=== PATIENT | male | born 1985 | race African-American/Black ===

== ENCOUNTER 2017-08-13 19:22 | Emergency (ER) | payer MEDICAID ==
[~2017-08-13] VITALS: Ht 194.3 cm; Wt 100.0 kg
[~2017-08-13 19:22] MED LIST: DOXY100T PO; Z.0.NO CURRENT MEDS
[2017-08-13 19:46] VITALS: PULSE 57; RESP 16; TEMP 99.3; O2SAT 98
--- NOTE | 2017-08-13 20:15 | PD ---
HPI Chief Complaint: Complaint Time Seen by Provider: 20:15 Travel History International Travel<30 days: No Contact w/Intl Traveler<30days: No Traveled to known affect area: No History of Present Illness HPI 31-year-old male presents to the emergency department accompanied by his girlfriend with complaint of exposure to chlamydia. His girlfriend and was just seen here at [place] in the ER and diagnosed with chlamydia and he was told that he needed to check in and be treated. He denies penile discharge, drainage, dysuria. Denies testicular pain or swelling. Denies fever, vomiting , abdominal pain. Symptoms are mild in severity. No known aggravating or relieving factors. Onset unknown. Duration unknown. Has not taken any medications or try any treatments to alleviate his symptoms. No known allergies. Denies significant past medical history. Has a primary care provider and cannot remember the name. Has no other medical complaints. No other modifying factors or associated signs and symptoms. PFSH Past Medical History Medical History: Denies Significant Hx Diminished Hearing: No Tetanus Vaccination: Unknown Influenza Vaccination: No Past Surgical History Surgical History: No Previous Surgery Social History Alcohol Use: No Tobacco Use: Yes (< 1PPD) Substance Use: No Allergies-Medications (Allergen,Severity, Reaction): Coded Allergies: No Known Allergies (Verified , 06/28/14) Reported Meds & Prescriptions Reported Meds & Active Scripts Active No Active Prescriptions or Reported Medications Review of Systems Except as stated in HPI: all other systems reviewed are Neg Physical Exam Narrative GENERAL: Well-nourished, well-developed black male patient, in no acute distress SKIN: Warm and dry. HEAD: Atraumatic. Normocephalic. EYES: Pupils equal and round. No scleral icterus. No injection or drainage. ENT: Mucosa pink and moist. Airway patent. NECK: Trachea midline. CARDIOVASCULAR: Regular rate. RESPIRATORY: No accessory muscle use. GASTROINTESTINAL: Flat. MUSCULOSKELETAL: No obvious deformities. No clubbing. No cyanosis. No edema. NEUROLOGICAL: Awake and alert. Oriented 3. No obvious cranial nerve deficits. Motor grossly within normal limits. Normal speech. PSYCHIATRIC: Appropriate mood and affect; insight and judgment normal. Data Data Last Documented VS Vital Signs Date Time Temp Pulse Resp B/P (MAP) Pulse Ox O2 Delivery O2 Flow Rate FiO2 08/13/17 19:46 99.3 57 16 98 Orders Orders Azithromycin Powd Pack (Zithromax Powd P (08/13/17 20:30) Ceftriaxone Inj (Rocephin Inj) (08/13/17 20:30) Lidocaine 1% Inj (50 Ml) (Xylocaine 1% I (08/13/17 20:30) Gc And Chlamydia Pcr (08/13/17 20:17) Ed Discharge Order (08/13/17 20:21) MDM Medical Decision Making Medical Screen Exam Complete: Yes Emergency Medical Condition: Yes Medical Record Reviewed: Yes Differential Diagnosis Chlamydia, gonorrhea, asymptomatic urethritis Narrative Course 31-year-old male with exposure to chlamydia. His girlfriend was just seen in the ER and diagnosed with chlamydia. He was told to check in and get treated. He is asymptomatic. I Reviewed the girlfriend's medical record and she was positive for bacterial vaginosis and chlamydia. Patient will be empirically treated with azithromycin and Rocephin in the ER. Instructed patient to follow- up with primary care provider or [facility] department for complete STD/STI screening. Instructed patient to follow up with primary care provider. Patient verbalizes understanding and agreement with treatment plan. Patient is medically cleared and stable for discharge. Discussed reasons to return to the emergency department. Patient agrees with treatment plan. The patients vital signs are stable and the patient is stable for outpatient follow-up and treatment. Patient discharged home, stable and in no acute distress. Diagnosis Primary Impression: Exposure to chlamydia Referrals: [facility] Primary Care Physician [facility] Dept. Patient Instructions: Chlamydia (ED), General Instructions, Sexually Transmitted Diseases (ED) Additional Instructions: Avoid sexual activity for 14 days No sexual activity with your partner/s until they have been treated and waited 14 days Inform all sexual partners within the past 3-6 months that they need to be evaluated and treated Use condoms every time you have sex Follow-up with primary care provider Return to the emergency department immediately with worsening of symptoms Med/Other Pt SpecificInfo: No Change to Meds, No Meds Exist/No RX given Scripts No Active Prescriptions or Reported Meds Disposition: 01 DISCHARGE HOME Condition: Stable Audrey Rivera Aug 13, 2017 20:15
[2017-08-13] MEDS ORDERED: cefTRIAXone 250 MG VIAL IM ONE (20:30)
[2017-08-13] MEDS ORDERED: LIDOCAINE HCL 1% 50 ML VIAL IM ONE (20:30)
[2017-08-13] MEDS ORDERED: AZITHROMYCIN PWD FOR SUSP 1 GM PACKET PO ONE (20:30)
[2017-08-13] MEDS ORDERED: LIDOCAINE HCL 1% 30 ML VIAL IM ONE (20:45)
[2017-08-13] MEDS ORDERED: LIDOCAINE HCL 1% 10 ML VIAL OTHER ONE (20:45)
== END 2017-08-13 20:54 | disposition home or self-care (01) ==
LOC: NEPK 19:22
DX: Z20.2 Contact with and (suspected) exposure to infections with a predominantly sexual mode of transmission (principal)
CPT/HCPCS: 96372; 99283; J0696